=== PATIENT | female | born 1995 | race Caucasian/White ===

== ENCOUNTER 2016-10-28 07:55 | Day surgery (SDC) | payer BC ==
[~2016-10-28] VITALS: Ht 157.5 cm; Wt 54.5 kg
[2016-10-28] VITALS (10 sets, daily range): BP systolic 102–126; BP diastolic 50–75; PULSE 72–106; TEMP 36.6–37.1; O2SAT 96–100; Ht 157.5 cm; Wt 54.5 kg
[~2016-10-28 07:55] MED LIST: MEDR150I IM
[2016-10-28] MEDS ORDERED: ANT25 (08:26)
[2016-10-28] MEDS ORDERED: BUPR150T5 (08:26)
--- NOTE | 2016-10-28 10:18 | Discharge Instructions ---
Discharge Instructions Procedure Procedure Date: Oct 28, 2016. Reason for visit: Abnormal Brain Mri, Headache W/Opening Pressure. Discharge Discharge Date: Oct 28, 2016. Discharge Diagnosis: ACTIVITY RECOMMENDATIONS: * Rest today. * Resume regular activity in one day. MEDICATIONS: * May take Tylenol or Ibuprofen as needed for pain. DIET: * Resume previous diet. SPECIAL CARE INSTRUCTIONS: Call your doctor if: * Temperature above 101 degrees F. * Pain not relieved by pain medicine ordered. * Increased drainage or redness from incision. * Notify your doctor with any questions or concerns. Call your doctor or go to the nearest Emergency Department if you experience: * Increased chest pain or shortness of breath. FOLLOW UP VISIT: Follow-up with Referring Physician as scheduled. Instructions Activity Recommendations: No limitations Return to School/Work: no limitations Recommended Home Diet: Resume Previous Diet Provider Instructions: ACTIVITY RECOMMENDATIONS: * Rest today. * Resume regular activity in one day. MEDICATIONS: * May take Tylenol or Ibuprofen as needed for pain. DIET: * Resume previous diet. SPECIAL CARE INSTRUCTIONS: Call your doctor if: * Temperature above 101 degrees F. * Pain not relieved by pain medicine ordered. * Increased drainage or redness from incision. * Notify your doctor with any questions or concerns. Call your doctor or go to the nearest Emergency Department if you experience: * Increased chest pain or shortness of breath. FOLLOW UP VISIT: Follow-up with Referring Physician as scheduled. Allergies Coded Allergies: Amoxicillin (Verified Allergy, Intermediate, RASH, 10/28/16) Clindamycin (Verified Allergy, Intermediate, RASH, 10/28/16) Penicillins (Verified Allergy, Intermediate, RASH, 10/28/16) Sondra Ellington Recommendations: Call your doctor if: * Temperature above 101 degrees * Pain not relieved by pain medicine ordered * There is increased drainage or redness from any incision * You have any unanswered questions or concerns. Your Doctors Instructions noted above were prepared by provider Nestor Valero. Patient Signature Section: Patient Instructions Signature Page Cherelle Gage Patient (or Guardian) Signature/Date: I have read and understand the instructions given to me by my caregivers. Caregiver/RN/Doctor Signature/Date: The above-named patient and/or guardian has received patient instructions on this date. + Original Patient Signature Page (only) stays with chart. Please make copy for patient.
--- NOTE | 2016-10-28 10:23 | DIAGNOSTIC IMAGING REPORT ---
FLUOROSCOPICALLY GUIDED LUMBAR PUNCTURE CLINICAL HISTORY: "MEMORY LOSS, SPOT ON MRI". Abnormal MRI. FLUOROSCOPY TIME: 0.7 minutes. PROCEDURE: The procedure, risks and benefits were discussed with the patient including the risk of spinal headache, bleeding and infection. The patient agreed to the procedure and informed written consent was obtained. The procedure was performed by Dr. Valero following a timeout. The left L2-L3 interlaminar space was targeted. Skin overlying the space was prepped and draped in the usual sterile fashion and local anesthesia was achieved with 1% lidocaine. Under intermittent fluoroscopic guidance, a 20-gauge x 3 1/2 in. Sprotte needle was inserted into the thecal sac. A total of 10 cc of clear, colorless cerebral spinal fluid was obtained and spread amongst 4 vials. The patient tolerated the procedure well. There were no immediate complications. The specimens were sent to the laboratory at the request of the referring physician. IMPRESSION: Successful fluoroscopic guided lumbar puncture with removal of 10 cc of clear, colorless cerebral spinal fluid. No immediate complications. Opening pressure was 16 cm of H20. Electronically signed by: Nestor Valero M.D. 10/28/2016 10:21 AM Dictated Date/Time: 10/28/2016 10:13 AM
[2016-10-28] MEDS ORDERED: ACETAMINOPHEN 500 MG TAB PO PRN (10:30)
[2016-10-28 10:58] LABS: CSF COLOR COLORLESS
[2016-10-28 10:59] LABS: CSF APPEARANCE CLEAR; CSF XANTHOCHROMIC NO XANTHOCHROMIA
[2016-10-28 11:16] LABS: CSF TOTAL PROTEIN 27.7 mg/dl (15.0-45.0)
[2016-10-28 11:47] LABS: CSF CHEMISTRY TUBE # #1
[2016-11-03 04:32] LABS: ALBUMIN 4.5 g/dL (3.7-5.1); IGG CSF 1.4 mg/dL (0.8-7.7); IGG SERUM 971 mg/dL (694-1618); LYME DNA PCR CSF OR SYNOVIAL Not detected (Not Detected); LYME DNA SOURCE CSF; LYME IGG CSF NO BANDS DETECTED; LYME IGM CSF NO BANDS DETECTED; MYELIN BASIC PROTEIN 663 <2.0 mcg/L (0.0-4.0)
== END 2016-10-28 14:18 | disposition home or self-care (01) ==
LOC: C.ACU 07:55
PROVIDERS: ATTEND Psychiatry & Neurology Neurology
DX: R90.89 Other abnormal findings on diagnostic imaging of central nervous system (principal); R51 Headache; R41.3 Other amnesia

== ENCOUNTER → 2016-12-20 | Outpatient (CLI) | payer BC ==
[~2016-12-20] MED LIST changes: +ANT25; +BUPR150T5; +GADAVIST IV PRN
--- NOTE | 2016-12-20 19:34 | DIAGNOSTIC IMAGING REPORT ---
MRI OF THE CERVICAL SPINE COMBO CLINICAL HISTORY: Demyelinating disorder. Dizziness. COMPARISON STUDY: Radiographs of the cervical spine dated 09/12/2015. TECHNIQUE: MRI of the cervical spine is performed utilizing various T1 and T2-weighted sequences in the axial and sagittal planes. Contrast-enhanced sequences are acquired following the IV administration of 5.5 cc of Gadavist. FINDINGS: Cervical spine: Vertebral body height and alignment are maintained throughout the cervical spine. Normal marrow signal intensity is preserved throughout the visualized bony structures. The atlantodental articulation appears maintained. The spinous processes are intact. No destructive bony lesion is seen. Intervertebral discs: Normal in height and signal intensity. Spinal cord: The cervical spinal cord is normal in morphology and signal intensity. No abnormal enhancement is seen on the postcontrast images. C2-C3: Unremarkable. C3-C4: Unremarkable. C4-C5: Unremarkable. C5-C6: Unremarkable. C6-C7: Unremarkable. C7-T1: Unremarkable. Soft tissues: The prevertebral and paraspinous soft tissues are normal in appearance. Brain parenchyma: Partially visualized brain parenchyma at the skull base is normal in appearance. IMPRESSION: 1. The cervical spinal cord is normal in morphology and signal intensity. 2. There is no disc herniation, central canal stenosis, or neural foraminal narrowing identified. Dictated: 12/20/2016 7:28 PM Transcribed: 12/20/2016 7:34 PM [place] Electronically signed by: Wilder Lin M.D. 12/20/2016 7:34 PM Dictated Date/Time: 12/20/2016 7:28 PM
--- NOTE | 2016-12-20 20:09 | DIAGNOSTIC IMAGING REPORT ---
MRI LUMBAR SPINE COMBO CLINICAL HISTORY: Back pain. Leg pain. Demyelinating disorder. COMPARISON STUDY: No priors. TECHNIQUE: MRI of the lumbar spine is performed using various T1 and T2-weighted sequences in the axial and sagittal planes. Contrast-enhanced sequences are acquired following the IV administration of 5.5 cc of Gadavist. FINDINGS: Lumbar spine: Vertebral body height and alignment are maintained throughout the lumbar spine. Normal marrow signal intensity is preserved throughout the visualized bony structures. The transverse and spinous processes appear intact. There is no evidence of spondylolysis. No destructive bony lesion is seen. Intervertebral discs: There is degenerative disc desiccation and mild loss of height at L5-S1. The remaining discs are normal in height and signal intensity. Paraspinal cord: The visualized spinal cord is normal in morphology and signal intensity. The conus medullaris terminates at the level of L1. No abnormal enhancement is identified on the postcontrast images. The nerve roots of the cauda equina are normal in appearance. L1-L2: Unremarkable. L2-L3: Unremarkable. L3-L4: Unremarkable. L4-L5: There is minimal posterior disc bulge. The central canal and neural foramina are widely patent. L5-S1: There is minimal posterior disc bulge. The central canal and neural foramina are widely patent. Sacrum: Visualized sacrum is normal in morphology and signal intensity. Soft tissues: The paraspinous soft tissues are normal in appearance. The retroperitoneal structures are normal as visualized, although are incompletely assessed. IMPRESSION: 1. There is no disc herniation, central canal stenosis, or neural foraminal narrowing seen throughout the lumbar spine. 2. No destructive bony process is seen. Dictated: 12/20/2016 7:34 PM Transcribed: 12/20/2016 8:09 PM [place] Electronically signed by: Wilder Lin M.D. 12/20/2016 8:10 PM Dictated Date/Time: 12/20/2016 7:34 PM
== END | disposition home or self-care (01) ==
LOC: C.MRI 17:52
PROVIDERS: ATTEND Psychiatry & Neurology Neurology
DX: G37.9 Demyelinating disease of central nervous system, unspecified (principal); M79.606 Pain in leg, unspecified

== ENCOUNTER → 2017-05-09 | Outpatient (CLI) | payer BC ==
[~2017-05-09] MED LIST changes: -GADAVIST IV PRN
[2017-05-13 02:22] LABS: CHLAMYDIA TRACH RNA*** NOT DETECTED (NOT DETECTED); GC (NEIS GONORRHOEAE)RNA** NOT DETECTED (NOT DETECTED)
== END | disposition home or self-care (01) ==
LOC: C.LABSPEC 14:24
PROVIDERS: ATTEND Obstetrics & Gynecology
DX: Z34.81 Encounter for supervision of other normal pregnancy, first trimester (principal)

== ENCOUNTER → 2017-05-09 | Outpatient (CLI) | payer BC | END | disposition home or self-care (01) | LOC: C.PAPS 15:49 | PROVIDERS: ATTEND Obstetrics & Gynecology | DX: Z34.81 Encounter for supervision of other normal pregnancy, first trimester (principal) ==

== ENCOUNTER → 2017-08-19 | Outpatient (CLI) | payer OTHER ==
[2017-08-19 11:52] LABS: BASO % 0.2 %; BASO ABS # 0.02 K/uL (0-0.2); EOS ABS # 0.12 K/uL (0-0.5); HEMATOCRIT 38.1 % (37-47); HEMOGLOBIN 13.2 g/dL (12.0-16.0); IG# 0.08 K/uL (0.00-0.02); LYMPH % 29.3 %; LYMPH ABS # 3.52 K/uL (1.2-3.4); MEAN CELL VOLUME 91.1 fL (80-100); MEAN CORPUSCULAR HEMOGLOBIN 31.6 pg (25-34); MEAN CORPUSCULAR HGB CONC 34.6 g/dl (32-36); MEAN PLATELET VOLUME 10.2 fL (7.4-10.4); MONO % 4.1 %; MONO ABS # 0.49 K/uL (0.11-0.59); NEUT % 64.7 %; NEUT ABS # 7.77 K/uL (1.4-6.5); PLATELET COUNT 138 K/uL (130-400); RED CELL DISTRIBUTION WIDTH CV 13.3 % (11.5-14.5); RED CELL DISTRIBUTION WIDTH SD 43.8 fL (36.4-46.3)
== END | disposition home or self-care (01) ==
LOC: C.LAB 09:26
PROVIDERS: ATTEND Obstetrics & Gynecology
DX: Z34.82 Encounter for supervision of other normal pregnancy, second trimester (principal)

== ENCOUNTER 2017-08-30 19:03 | Observation (INO) | payer BC, OTHER ==
[~2017-08-30] VITALS: Ht 157.5 cm; Wt 60.0 kg
[2017-08-30] MEDS ORDERED: NURSING VERBAL MED ORDER ONE ×2 (19:45→20:45)
[2017-08-30] MEDS ORDERED: PRENTAB26 PO (19:45)
[2017-08-30] MEDS ORDERED: CHOL1000 PO (19:45)
[2017-08-30 19:46] VITALS: Ht 157.5 cm; Wt 60.0 kg
[2017-08-30] MEDS ORDERED: LACTATED RINGER'S 1000ML 1,000 ML IV SCH ×2 (20:00→21:00)
[2017-08-30] MEDS: CEFAZOLIN IV 1,000 MG in SYRINGE 0 ML IV SCH (20:46)
[2017-08-30] MEDS: LACTATED RINGER'S 1000ML 1,000 ML IV SCH (20:50)
--- NOTE | 2017-08-30 21:08 | HISTORY & PHYSICAL EXAMINATION ---
DATE OF ADMISSION: 08/30/2017 CHIEF COMPLAINT: Intrauterine at 22 weeks gestation, cramping, nausea, bloody urine. HISTORY OF PRESENT ILLNESS: The patient is a 22-year-old 2, para 1, in good general health. She has had 2 ultrasounds during the , a first trimester ultrasound and a mid trimester ultrasound. Her due date is 12/31/2017. Her obstetrical history is as follows: In 2014, she had a 9 pound 3 ounce female, spontaneous vaginal delivery, 40 weeks forceps delivery, 15 hour labor, pushed for 4 hours. Present admissions symptoms started in the morning of admission and she started with cramping, some nausea, lower back pain, some vomiting and she noticed blood on urination along with frequent urination and painful urination. PAST MEDICAL HISTORY: She has a 2-year-old girl. ALLERGIES: ALLERGIC TO PENICILLIN, AMOXICILLIN, CLINDAMYCIN. PAST SURGICAL HISTORY: She has had T&A in the past. SOCIAL HISTORY: No smoking. No alcohol intake. Works at [employer]. FAMILY HISTORY: Mom is 56, has severe COPD secondary to smoking. Dad of MS at age 48. She has 1 sister, 29, drug addict. REVIEW OF SYSTEMS: She has frequent urination. PHYSICAL EXAMINATION: GENERAL: Well developed, well-nourished 22-year-old white female, alert, oriented x3 and cooperative in no acute distress, appears stated age. EYES: Conjunctivae are pink. Sclerae white. No evidence of jaundice. EARS: Had normal light reflex bilaterally. NOSE: Had normal mucosa. Septum is midline. There were no polyps. THROAT: No erythema or evidence of infection. Teeth are in good state of repair. HEAD: Normocephalic, normal distribution of hair. LUNGS: Clear to auscultation and percussion. HEART: Regular rhythm. S1, S2 were normal. ABDOMEN: Soft and nontender. Measured consistent with a 22 weeks gestation. There was no flank tenderness on either side on deep palpation. MUSCULOSKELETAL: No calf tenderness. PELVIC: Revealed the cervix to be posterior, firm, closed and uneffaced. IMPRESSIONS OF THIS CASE: Intrauterine 22 weeks gestation and acute cystitis.
--- NOTE | 2017-08-30 21:20 | DIAGNOSTIC IMAGING REPORT ---
TRANSVAGINAL CLINICAL HISTORY: cramping pain TECHNIQUE: Limited transvaginal ultrasound COMPARISON STUDY: None FINDINGS: Study is limited to the maternal cervical length. Length is 4.6 cm IMPRESSION: Maternal cervical length is 4.6 cm The above report was generated using voice recognition software. It may contain grammatical, syntax or spelling errors. Electronically signed by: Mehul Jimenez M.D. 08/30/2017 9:19 PM Dictated Date/Time: 08/30/2017 9:18 PM
[2017-08-30] MEDS ORDERED: IV FLUIDS COMPLETED PRN (21:30)
[2017-08-31] MEDS: LACTATED RINGER'S 1000ML 1,000 ML IV SCH ×2 (01:47→07:14)
[2017-08-31] MEDS: CEFAZOLIN IV 1,000 MG in SYRINGE 0 ML IV SCH ×2 (02:49→08:42)
--- NOTE | 2017-08-31 08:40 | OB/GYN Progress Note ---
TR[facility] Progress Note Date of Service Aug 31, 2017. Subjective conversation w/ patient Ambulation: ambulating normally Voiding: no voiding problems Passing Gas: Yes Diet Tolerance: Regular Diet Review of Systems Constitutional: + fever Objective Physical Exam General Appearance: WELL-APPEARING Abdomen: non tender Fundus: Non-Tender Extremities: no pedal edema, no calf tenderness Laboratory Results Last 24 Hours Test 08/30/17 20:02 Urine Color ORANGE Urine Appearance CLOUDY Urine pH 5.5 Urine Specific Odin 1.027 Urine Protein 1+ Urine Glucose (UA) NEG Urine Ketones NEG Urine Occult Blood 3+ Urine Nitrite NEG Urine Bilirubin NEG Urine Urobilinogen NEG Urine Leukocyte Esterase TRACE Urine WBC (Auto) 5-10 /hpf Urine RBC (Auto) >30 /hpf Urine Hyaline Casts (Auto) 0 /lpf Urine Epithelial Cells (Auto) >30 /lpf Urine Bacteria (Auto) NEG Urine Renal Epithelial Cells 0-5 /lpf Urine Pathogenic Casts /lpf
--- NOTE | 2017-08-31 08:42 | Discharge Instructions ---
Discharge Instructions Date of Service Aug 31, 2017. Admission Reason for Admission: Pre-Term Cramping And Bleeding Discharge Discharge Diagnosis / Problem: acute cystitis Discharge Goals Goal(s): Continuing OB care Activity Recommendations Activity Limitations: as noted below May Resume Sexual Activity: when tolerated Driving or Machine Use: no limitations . Current Hospital Diet Patient's current hospital diet: Regular OB Diet Discharge Diet Recommended Diet: Regular Diet Pending Studies Studies pending at discharge: no Medical Emergencies . Who to Call and When: Medical Emergencies: If at any time you feel your situation is an emergency, please call 911 immediately. . Non-Emergent Contact Non-Emergency issues call your: Tip Cementer Call Non-Emergent contact if: temperature is above 100.5 . . "Provider Documentation" section prepared by Peter Plummer. . VTE Core Measure Inpt VTE Proph given/why not?: Treatment not indicated
--- NOTE | 2017-08-31 09:00 | DISCHARGE SUMMARY ---
HOSPITAL COURSE: Mrs. Gee was admitted with symptoms of some nausea, vomiting, pelvic pain and cramping along with bloody urine. She was brought up to maternity for evaluation, placed on the monitor. She had a fem cath done. Urine looked cloudy, suspected of having acute cystitis. She was treated with an IV fluid bolus in a continuous rate of 200 mL an hour. She had a fem cath specimen sent for culture and she was given Ancef for antibiotics. She had a PENICILLIN AND CLINDAMYCIN ALLERGY. She was given a gram of Ancef every 6 hours during the night before discharge. In the morning, she ended up having 3 doses. By the time she was discharged, she was ambulating well, feeling well, her cramping and urgency had resolved and she was given a prescription for Keflex 500 mg to take 4 times a day for a week and also to return for a routine visit. She was also evaluated with a transvaginal ultrasound to check for any evidence of premature labor and this showed a transvaginal length of over 4.5 cm.
== END 2017-08-31 09:13 | disposition home or self-care (01) ==
LOC: C.LD 19:03 → C.OPB 19:03 → C.LD 20:37 → C.OPB 20:37
PROVIDERS: ADMIT Obstetrics & Gynecology; ATTEND Obstetrics & Gynecology
DX: O23.12 Infections of bladder in pregnancy, second trimester (principal); R11.2 Nausea with vomiting, unspecified; Z3A.22 22 weeks gestation of pregnancy; Z88.0 Allergy status to penicillin; Z88.1 Allergy status to other antibiotic agents

== ENCOUNTER → 2017-11-24 | Outpatient (CLI) | payer OTHER ==
[~2017-11-24] MED LIST changes: -ANT25; -BUPR150T5; +CHOL1000 PO; -MEDR150I IM; +PRENTAB26 PO
--- NOTE | 2017-11-24 17:00 | DIAGNOSTIC IMAGING REPORT ---
BILATERAL LOWER EXTREMITY VENOUS DOPPLER HISTORY: SWELLING IN BOTH LOWER LEGS R/O DVT COMPARISON STUDY: None. FINDINGS: There is normal compressibility, flow, and augmentation within the bilateral lower extremity deep venous systems. IMPRESSION: No DVT within the right or left lower extremity. Electronically signed by: Nestor Valero M.D. 11/24/2017 4:59 PM Dictated Date/Time: 11/24/2017 4:58 PM
== END | disposition home or self-care (01) ==
LOC: C.ULTR 16:17
PROVIDERS: ATTEND Obstetrics & Gynecology
DX: M79.89 Other specified soft tissue disorders (principal)

== ENCOUNTER → 2018-02-09 | Outpatient (CLI) | payer OTHER | END | disposition home or self-care (01) | LOC: C.PAPS 18:06 | PROVIDERS: ATTEND Obstetrics & Gynecology | DX: Z39.2 Encounter for routine postpartum follow-up (principal) ==